=== PATIENT | female | born 1990 | race Hispanic/Latino ===

== ENCOUNTER 2018-03-18 20:02 | Emergency (ER) | payer OTHER ==
[2018-03-18 20:41] LABS: BASO % 0.1 % (0.0-1.0); EOS # 0.1 10^3/uL (0.0-0.50); EOS % 0.8 % (0.0-3.0); HEMATOCRIT 31.6 % (36.0-47.0); HEMOGLOBIN 10.6 g/dl (12.0-15.5); IMMATURE GRANULOCYTE % 0.5 % (0-3.0); LYMPH # 1.5 10^3/uL (1.5-6.5); LYMPH % 19.9 % (24.0-44.0); MEAN CORPUSCULAR HEMOGLOBIN 27.8 pg (27.0-33.0); MEAN CORPUSCULAR HGB CONC 33.5 g/dl (32.0-36.5); MEAN CORPUSCULAR VOLUME 82.9 fl (80.0-96.0); MONO # 0.7 10^3/uL (0.0-0.8); MONO % 9.3 % (0.0-5.0); NEUTROPHILS # 5.3 10^3/uL (1.8-7.7); NEUTROPHILS % 69.4 % (36.0-66.0); PLATELET COUNT, AUTOMATED 254 10^3/uL (150-450); RED BLOOD COUNT 3.81 10^6/uL (4.00-5.40); RED CELL DISTRIBUTION WIDTH 14.3 % (11.5-14.5); WHITE BLOOD COUNT 7.6 10^3/uL (4.0-10.0)
[2018-03-18 21:06] LABS: ANION GAP 9 MEQ/L (8-16); BLOOD UREA NITROGEN 7 MG/DL (7-18); CALCIUM LEVEL 8.4 MG/DL (8.5-10.1); CARBON DIOXIDE LEVEL 22 MEQ/L (21-32); CHLORIDE LEVEL 107 MEQ/L (98-107); CK-MB VALUE MASS 2.9 NG/ML (<3.6); CPK CREATINE PHOSPHOKINASE 110 U/L (26-192); CREATININE FOR GFR 0.54 MG/DL (0.55-1.30); GLOMERULAR FILTRATION RATE > 60.0 (>60); GLUCOSE, FASTING 95 MG/DL (70-100); MB/CK RELATIVE INDEX 2.63 (< OR =4); POTASSIUM SERUM 3.8 MEQ/L (3.5-5.1); SODIUM LEVEL 138 MEQ/L (136-145); TROPONIN I < 0.02 NG/ML (< 0.10)
[2018-03-18] MEDS: ACETAMINOPHEN TAB 650MG DOSE (2X325MG) PO (22:00)
== END 2018-03-19 00:26 | disposition home or self-care (01) ==
LOC: M ED 03-19 00:26
DX: O99.89 Other specified diseases and conditions complicating pregnancy, childbirth and the puerperium (principal); R07.9 Chest pain, unspecified; I45.19 Other right bundle-branch block; Z3A.36 36 weeks gestation of pregnancy
CPT/HCPCS: 93970

== ENCOUNTER 2018-04-08 09:25 | Inpatient (IN) | payer OTHER ==
[2018-04-08 10:58] LABS: HEMATOCRIT 32.7 % (36.0-47.0); HEMOGLOBIN 10.7 g/dl (12.0-15.5); MEAN CORPUSCULAR HEMOGLOBIN 26.7 pg (27.0-33.0); MEAN CORPUSCULAR HGB CONC 32.7 g/dl (32.0-36.5); MEAN CORPUSCULAR VOLUME 81.5 fl (80.0-96.0); PLATELET COUNT, AUTOMATED 271 10^3/uL (150-450); RED BLOOD COUNT 4.01 10^6/uL (4.00-5.40); RED CELL DISTRIBUTION WIDTH 14.7 % (11.5-14.5)
[2018-04-08] MEDS: miSOPROStol 50 MCG 1/2 TAB (S0191) PO (18:32)
[2018-04-08] MEDS: LR 1,000 ML IV (19:00)
[2018-04-08] MEDS ORDERED: OXYTOCIN 30 UNITS IN 0.9% NaCl 500ML IV BAG (J2590) As Ordered (22:24)
[2018-04-08] MEDS ORDERED: FENTANYL 2MCG/ML ROPIVACAINE 0.2% IN 0.9% NACL 200ML IVBAG As Ordered (22:48)
[2018-04-08] MEDS ORDERED: diphenhydrAMINE INJ 50MG/ML VIAL (J1200) IV (23:30)
[2018-04-08] MEDS ORDERED: FENTANYL/ROPIVACAINE/NACL BAG 200 ML EPIDURAL (23:30)
[2018-04-08] MEDS ORDERED: ePHEDrine SULFATE 25 MG/5 ML(5MG/ML) SYRINGE IV (23:30)
[2018-04-08] MEDS ORDERED: NALOXONE INJ 0.4 MG/1 ML VIAL (J2310) IV (23:30)
[2018-04-08] MEDS ORDERED: EPIDURAL/PCA KEYS XX (23:30)
[2018-04-08] MEDS ORDERED: REFRIGERATOR IV KEYS XX (23:30)
[2018-04-08] MEDS ORDERED: ONDANSETRON 4MG/2ML VIAL (J2405) IV (23:30)
[2018-04-08] MEDS ORDERED: EPIDURAL COMMENT XX (23:30)
[2018-04-09] MEDS ORDERED: LR 1,000 ML IV (00:01)
[2018-04-09] MEDS: OXYTOCIN DRIP 30 UNITS in APPROPRIATE DILUENT 1 EA IV ×2 (00:05→19:48)
[2018-04-09] MEDS: LR 1,000 ML IV (00:07)
[2018-04-09] MEDS: LIDOCAINE 1% MDV 20ML VIAL INFIL (02:00)
[2018-04-09] MEDS ORDERED: METOCLOPRAMIDE INJ 10MG/2ML VIAL (J2765) IV (04:00)
[2018-04-09] MEDS ORDERED: DIBUCAINE 1% OINTMENT 30GM TOP (04:00)
[2018-04-09] MEDS: IBUPROFEN 800 MG TAB PO ×2 (04:37→18:05)
[2018-04-09] MEDS: ACETAMINOPHEN TAB 650MG DOSE (2X325MG) PO (09:38)
[2018-04-09] MEDS: PRENATAL VITAMINS CHEWABLE TABLET PO (09:39)
[2018-04-09] MEDS: DOCUSATE SODIUM 100 MG CAP PO ×2 (09:39→20:16)
[2018-04-09] MEDS: RHOGAM 300 MCG (1500 IU) INJ (J2790) IM (23:05)
[2018-04-10] MEDS: PRENATAL VITAMINS CHEWABLE TABLET PO (09:12)
[2018-04-10] MEDS: DOCUSATE SODIUM 100 MG CAP PO (09:12)
[2018-04-10] MEDS: IBUPROFEN 800 MG TAB PO (09:12)
[2018-04-10] MEDS: MEASLES,MUMPS,RUBELLA VACCINE INJ (MMR-II) (90707) SC (12:56)
== END 2018-04-10 13:05 | disposition home or self-care (01) | DRG 775 ==
LOC: M LDO 09:25 → M OBS 04-09 04:18 → M LDI 10:44
PROVIDERS: Obstetrics & Gynecology
PROC: 10E0XZZ Delivery of Products of Conception, External Approach (ICD-10-PCS; principal; 2018-04-09)
PROC: 0HQ9XZZ Repair Perineum Skin, External Approach (ICD-10-PCS; 2018-04-09)
DX: O99.02 Anemia complicating childbirth (principal); Z37.0 Single live birth; Z3A.38 38 weeks gestation of pregnancy; D64.9 Anemia, unspecified; O64.5XX0 Obstructed labor due to compound presentation, not applicable or unspecified; O70.0 First degree perineal laceration during delivery

== ENCOUNTER 2018-05-22 12:59 | Emergency (ER) | payer OTHER | END 2018-05-22 14:10 | disposition home or self-care (01) | LOC: M ED 12:59 | DX: S80.861A Insect bite (nonvenomous), right lower leg, initial encounter (principal); L50.9 Urticaria, unspecified; W57.XXXA Bitten or stung by nonvenomous insect and other nonvenomous arthropods, initial encounter; Y92.89 Other specified places as the place of occurrence of the external cause; Z79.899 Other long term (current) drug therapy | CPT/HCPCS: 99282 ==

== ENCOUNTER 2019-07-13 11:08 | Emergency (ER) | payer OTHER ==
[~2019-07-13] VITALS: Ht 165.1 cm; Wt 59.3 kg
[~2019-07-13 11:08] MED LIST: COLA100C5 PO; FE C PO; FERR325T3 PO; KEFL500C17 PO; MOTR200T44 PO; PRENTAB55 PO; TRIA1CR80 TOP; TYLE325C PO; VITA500C24 PO
[2019-07-13] MEDS ORDERED: KETOROLAC TROMETHAMINE 10 MG TAB PO ONE (12:00)
--- NOTE | 2019-07-13 13:12 | REP ---
RIGHT HAND, FOUR VIEWS: Four views of the right hand performed. There is a fracture of the distal third of the fifth metacarpal of mild anterior displacement and angulation. No other acute fracture or dislocation is seen of the visualized osseous structures. Electronically Signed by Alan Zaidi MD 07/13/2019 04:23 P
--- NOTE | 2019-07-13 13:14 | REP ---
RIGHT SHOULDER, THREE VIEWS: Three views of the right shoulder are performed. There is no fracture identified. There may be mild widening of the acromioclavicular joint and possibly mild sprain of the acromioclavicular ligament. No other significant findings are seen. Electronically Signed by Alan Zaidi MD 07/13/2019 04:24 P
--- NOTE | 2019-07-13 13:14 | REP ---
RIGHT FOOT, FOUR VIEWS: There is no evidence of an acute fracture, dislocation or intrinsic bone disease. IMPRESSION: No fracture or dislocation. Electronically Signed by Alan Zaidi MD 07/13/2019 04:23 P
--- NOTE | 2019-07-13 13:25 | REP ---
RIGHT RIB SERIES: Four views of the right ribs are performed. No fracture or bone lesion is seen. An accompanying view of the chest demonstrates no acute infiltrate, pleural effusion, or pneumothorax. Heart and mediastinum are within normal limits. IMPRESSION: Negative right rib series. Electronically Signed by Alan Zaidi MD 07/13/2019 04:24 P
[2019-07-13 14:04] VITALS: BP 116/63
== END 2019-07-13 14:14 | disposition home or self-care (01) ==
LOC: EDBD 11:08 → M ED 11:08
DX: S62.316A Displaced fracture of base of fifth metacarpal bone, right hand, initial encounter for closed fracture (principal); S43.402A Unspecified sprain of left shoulder joint, initial encounter; V43.52XA Car driver injured in collision with other type car in traffic accident, initial encounter; Y92.9 Unspecified place or not applicable; Y93.9 Activity, unspecified; Y99.9 Unspecified external cause status